=== PATIENT | male | born 1975 | race Caucasian/White ===

== ENCOUNTER 2024-12-11 22:21 | Inpatient (IN) | payer BC, SELFPAY ==
[2024-12-11 18:14] VITALS: BP 123/95
[2024-12-11 18:38] LABS: Urine Character Cloudy (Clear)
[2024-12-11 18:47] LABS: Urine Squamous Cell 0-2 /LPF (Few)
[2024-12-11 18:49] LABS: Urine Red Blood Cell 70-80 /HPF (0-2); Urine White Cell 21-25 /HPF (0-5)
[2024-12-11 18:59] LABS: Hematocrit 47.5 % (39.0-52.0); Hemoglobin 15.5 g/dL (13.0-18.0); Mean Corp Hgb Conc. 32.6 g/dL (33.0-37.0); Mean Corpuscular Volume 87.2 fL (80.0-94.0); Nucleated Red Blood Cells % 0 % (-); Platelet Count 209 10^3/uL (130-400); Red Cell Dist. Width 13.8 % (11.5-14.5)
[2024-12-11 19:02] VITALS: BP 121/63
[2024-12-11 19:12] VITALS: BMI 45.8
--- NOTE | 2024-12-11 19:17 | ED.GENMED ---
History of Present Illness
<Henry Dos Santos PA-C - Last Filed: 12/11/24 20:46>
General
Chief Complaint: Fever
Source: patient
Exam Limitations: none
Time Seen by Provider: 12/11/24 19:00
History of Present Illness
History of Present Illness:
49-year-old male bariatric patient status post duodenal switch presents complaining of ongoing fever fatigue urinary symptoms. He notes foul-smelling urine. He has a history of kidney stones and believes he passed a stone on his own last week. He
heard it hit the toilet. He notes persistent urinary symptoms however. He has been having ongoing fever. He also notes a cough. He notes right sided flank pain. No other complaints at this time
Phy Exam
<Henry Dos Santos PA-C - Last Filed: 12/11/24 20:46>
Physical Exam
Physical Exam:
General: Obese slightly ill-appearing male no acute respiratory distress
HEENT: Normal cephalic atraumatic heart: Regular rate and rhythm
Lungs: Breath sounds distant secondary to body habitus but no obvious Rales
Abdomen: No significant tenderness to palpation
Sepsis
<Henry Dos Santos PA-C - Last Filed: 12/11/24 20:46>
Sepsis Screening
Sepsis Assessment: Sepsis
Sepsis Screen
Sepsis Screen: Sepsis
Date: 12/11/24
Time: 20:46
<Oswald Morillo MD - Last Filed: 12/11/24 20:57>
Sepsis Screen
Sepsis Screen: Sepsis
Date: 12/11/24
Time: 20:56
Course
<Henry Dos Santos PA-C - Last Filed: 12/11/24 20:46>
Orders/Labs/Results
Orders:
Orders
10/22/25 18:32
Urinalysis Reflex To Culture Urgent
Date Specimen was Collected: 12/11/24
Time Specimen was Collected: 18:29
Urine Microscopic Reflex Cult Urgent
Urine Culture Urgent
KOURTNEY Source: U
Specimen Description:
Date Specimen was Collected: 12/11/24
Time Specimen was Collected: 18:29
12/11/24 18:48
Complete Blood Count/With Diff Urgent
Comprehensive Metabolic Panel Urgent
Lactic Acid Urgent
Blood Culture Urgent
KOURTNEY Source: Blood/Venous
Specimen Description:
12/11/24 19:14
CT Abd/pel Without Iv Or Oral Urgent
Comment:
Reason For Exam: flank pain, hematuria
0.9% Sodium Chloride 1000 ml [Nss] 1,000 ml IV BOLUS
CR Chest - 2 Views Urgent
Comment:
Reason For Exam: cough, fever
12/11/24 19:28
Blood Culture Urgent
KOURTNEY Source: Blood/Venous
Specimen Description:
12/11/24 19:29
Acetaminophen [Tylenol] 1,000 mg PO NOW STA
CefTRIAXone [Rocephin] 1,000 mg IV NOW STA
12/11/24 19:36
0.9% Sodium Chloride 1000 ml [Nss] 1,000 ml IV BOLUS
Abnormal Lab Results
12/11/24 12/11/24
18:32 18:48
WBC 14.6 H 10^3/uL
(4.8-10.8)
MCHC 32.6 L g/dL
(33.0-37.0)
MPV 12.6 H fL
(7.4-10.4)
Abs Immat Gran (auto) 0.1 H 10^3/uL
(0-0.05)
Absolute Neuts (auto) 12.5 H 10^3/uL
(1.4-6.5)
Absolute Lymphs (auto) 0.8 L 10^3/uL
(1.2-3.4)
Absolute Monos (auto) 1.2 H 10^3/uL
(0.1-0.6)
Neutrophils % 85.7 H %
(42.2-75.2)
Lymphocytes % 5.4 L %
(20.5-51.1)
Sodium 128 L mmol/L
(135-145)
Glucose 298 H mg/dl
(70-99)
Lactic Acid 2.1 H mmol/L
(0.7-2.0)
Calcium 8.1 L mg/dl
(8.4-10.2)
Total Bilirubin 1.4 H mg/dl
(0.2-1.3)
ALT 168 H U/L
(0-50)
Alkaline Phosphatase 163 H U/L
(38-126)
Urine Ketones 3+ A
(Negative)
Ur Occult Blood Reflex 4+ A
(Negative)
Urine Nitrite (Reflex) Positive A
(Negative)
Leukocyte Esterase Rfl 2+ A
(Negative)
Urine RBC 70-80 A /HPF
(0-2)
Urine WBC (Reflex) 21-25 A /HPF
(0-5)
Urine Bacteria (Reflex) Many A
(Negative)
Urine Glucose 3+ A
(Negative)
Urine Albumin (Reflex) 3+ A
(Neg - Trace)
12/11/24 18:48
12/11/24 18:48
Vital Signs
Initial and Last Documented VS:
Initial Vital Signs
Temp Pulse Resp BP Pulse Ox
100.4 F H 132 20 123/95 95
12/11/24 18:14 12/11/24 18:14 12/11/24 18:14 12/11/24 18:14 12/11/24 18:14
Last Documented Vital Signs
Temp Pulse Resp BP Pulse Ox
102 F H 114 15 144/124 97
12/11/24 20:54 12/11/24 20:15 12/11/24 20:15 12/11/24 20:00 12/11/24 19:30
<Oswald Morillo MD - Last Filed: 12/11/24 20:57>
Orders/Labs/Results
Orders:
Orders
12/11/24 18:32
Urinalysis Reflex To Culture Urgent
Date Specimen was Collected: 12/11/24
Time Specimen was Collected: 18:29
Urine Microscopic Reflex Cult Urgent
Urine Culture Urgent
KOURTNEY Source: U
Specimen Description:
Date Specimen was Collected: 12/11/24
Time Specimen was Collected: 18:29
12/11/24 18:48
Complete Blood Count/With Diff Urgent
Comprehensive Metabolic Panel Urgent
Lactic Acid Urgent
Blood Culture Urgent
KOURTNEY Source: Blood/Venous
Specimen Description:
12/11/24 19:14
CT Abd/pel Without Iv Or Oral Urgent
Comment:
Reason For Exam: flank pain, hematuria
0.9% Sodium Chloride 1000 ml [Nss] 1,000 ml IV BOLUS
CR Chest - 2 Views Urgent
Comment:
Reason For Exam: cough, fever
12/11/24 19:28
Blood Culture Urgent
KOURTNEY Source: Blood/Venous
Specimen Description:
12/11/24 19:29
Acetaminophen [Tylenol] 1,000 mg PO NOW STA
CefTRIAXone [Rocephin] 1,000 mg IV NOW STA
12/11/24 19:36
0.9% Sodium Chloride 1000 ml [Nss] 1,000 ml IV BOLUS
Abnormal Lab Results
12/11/24 12/11/24
18:32 18:48
WBC 14.6 H 10^3/uL
(4.8-10.8)
MCHC 32.6 L g/dL
(33.0-37.0)
MPV 12.6 H fL
(7.4-10.4)
Abs Immat Gran (auto) 0.1 H 10^3/uL
(0-0.05)
Absolute Neuts (auto) 12.5 H 10^3/uL
(1.4-6.5)
Absolute Lymphs (auto) 0.8 L 10^3/uL
(1.2-3.4)
Absolute Monos (auto) 1.2 H 10^3/uL
(0.1-0.6)
Neutrophils % 85.7 H %
(42.2-75.2)
Lymphocytes % 5.4 L %
(20.5-51.1)
Sodium 128 L mmol/L
(135-145)
Glucose 298 H mg/dl
(70-99)
Lactic Acid 2.1 H mmol/L
(0.7-2.0)
Calcium 8.1 L mg/dl
(8.4-10.2)
Total Bilirubin 1.4 H mg/dl
(0.2-1.3)
ALT 168 H U/L
(0-50)
Alkaline Phosphatase 163 H U/L
(38-126)
Urine Ketones 3+ A
(Negative)
Ur Occult Blood Reflex 4+ A
(Negative)
Urine Nitrite (Reflex) Positive A
(Negative)
Leukocyte Esterase Rfl 2+ A
(Negative)
Urine RBC 70-80 A /HPF
(0-2)
Urine WBC (Reflex) 21-25 A /HPF
(0-5)
Urine Bacteria (Reflex) Many A
(Negative)
Urine Glucose 3+ A
(Negative)
Urine Albumin (Reflex) 3+ A
(Neg - Trace)
12/11/24 18:48
12/11/24 18:48
Vital Signs
Initial and Last Documented VS:
Initial Vital Signs
Temp Pulse Resp BP Pulse Ox
100.4 F H 132 20 123/95 95
12/11/24 18:14 12/11/24 18:14 12/11/24 18:14 12/11/24 18:14 12/11/24 18:14
Last Documented Vital Signs
Temp Pulse Resp BP Pulse Ox
102 F H 114 15 144/124 97
12/11/24 20:54 12/11/24 20:15 12/11/24 20:15 12/11/24 20:00 12/11/24 19:30
<Henry Dos Santos PA-C - Last Filed: 12/11/24 20:46>
MDM/Problems Addressed
Differential Diagnosis Includes:
Fever urinary symptoms cough fatigue. Question underlying UTI versus kidney stone or both. He was recently tested for COVID and flu at his doctor's office today which was negative. Will add chest x-ray and CT of the abdomen. Fluids ordered.
<Henry Dos Santos PA-C - Last Filed: 12/11/24 20:46>
*Pulse Oximetry
SaO2: 93
Oxygen Mode of Delivery: Room air
Patient hypoxic: no
*Critical Care Note
Total Time (30-74mins, 75-104mins- exclusive of procedures): Not Applicable
<Henry Dos Santos PA-C - Last Filed: 12/11/24 20:46>
Update Note
Update Note:
CT demonstrates findings consistent with pyelonephritis but no obvious obstructing stone. Labs reviewed lactic is 2.1 white count is elevated patient is septic secondary to urinary tract infection or pyelonephritis. Rocephin ordered Tylenol ordered
ED Attending Note
<Henry Dos Santos PA-C - Last Filed: 12/11/24 20:46>
-
Portions of this chart may have been created with voice recognition software.� Occasional wrong word or��sound alike� substitutions may have occurred due to the inherent limitations of voice recognition software.
<Oswald Morillo MD - Last Filed: 12/11/24 20:57>
ED Attending Note
Patient seen and examined by attending physician: Yes
ED Attending Note:
Patient presents to ED secondary to 5-day history of fever, chills, and body ache, along with nausea sensation. 3 days prior to onset of his symptoms, patient felt as though he may have passed kidney stone. Denies vomiting or diarrhea. Denies
coughing. Denies headache. Denies dizziness. Denies chest pain or shortness of breath.
Physical Exam
General: mild distress, not acutely ill. febrile
Head: nc/at. eomi
Neck: supple. no meningeal signs.
Heart: tachycardic. no murmur
Lungs: no acute respiratory distress. clear bilaterally
Abdomen: normal bowel sounds. not tender.
Neuro: alert and oriented x 3. no focal neurological deficits
Skin: no rash
Psychiatric: well kept. interactive and cooperative
Extremities: no edema. no calf tenderness.
History and exam consistent with sepsis, likely secondary to pyelonephritis. Patient treated aggressively with IV fluid boluses along with IV antibiotics. Blood culture pending. Urine culture pending.
CT abdomen pelvis report reviewed, consistent with likely pyelonephritis without any evidence of obstructing ureteral stone.
Discharge Plan
Departure
Patient Disposition: Admit
Date of Disposition: 12/11/24
Time of Disposition: 20:46
Presentation/result/management discussed w/ accepting MD/DO: Hospitalist
Discharge Problem:
Sepsis
Prescriptions:
No Action
No Current Medications
0
Interventions
Interventions:
*Risk Screen - Suicide Last Done: 12/11/24 19:31
*General Assessment Last Done: 12/11/24 19:31
*Neglect/Abuse Screening Last Done: 12/11/24 19:31
*ED- Fall Risk Assessment Last Done: 12/11/24 19:31
*ED COVID-19 Vaccine History Last Done: 12/11/24 18:14
*ED Influenza Vaccine History Last Done: 12/11/24 18:14
ED- Neurological Assessment Last Done: 12/11/24 19:46
ED-Skin Assessment Last Done: 12/11/24 19:46
Discharge Date and Time
Print Language: GRENADIAN
[2024-12-11 19:22] LABS: ALT (SGPT) 168 U/L (0-50); AST (SGOT) 35 U/L (17-59); Albumin 3.6 g/dl (3.5-5.0); Alkaline Phosphatase 163 U/L (38-126); Blood Urea Nitrogen 11 mg/dl (9-20); Calcium 8.1 mg/dl (8.4-10.2); Carbon Dioxide 24 mmol/L (22-30); Chloride 101 mmol/L (98-107); Estimated Creatinine Clearance > 125 ml/min; Glucose 298 mg/dl (70-99); Potassium 4.0 mmol/L (3.5-5.1); Sodium 128 mmol/L (135-145); Total Protein 6.7 g/dl (6.3-8.2); eGFR > 60.00
[2024-12-11] MEDS: NSS 1000 IV ×3 (19:24→23:04)
[2024-12-11] MEDS: TYLENOL 1000 MG PO (19:35)
[2024-12-11] MEDS: ROCEPHIN 1000 MG IV (19:36)
[2024-12-11 20:00] VITALS: BP 144/124
[2024-12-11 20:53] VITALS: BP 122/76
[2024-12-11 21:00] VITALS: BP 136/125
[2024-12-11] MEDS: NSS 500 IV (21:17)
--- NOTE | 2024-12-11 21:44 | HPS.HSE ---
Family Physician
-
Family Physician: Arianna Holcomb
Chief Complaint
-
Fevers / Chills
History of Present Illness
Patient is a 49y M with PMH significant for obesity s/p bariatric surgery who presents to ED complaining of fevers / chills, abdominal pain and malaise. Patient states that he developed initial symptoms about one week ago of fevers / chills,
cough and abdominal pain. He notes that he passed a kidney stone 2 days after symptom onset. He has continued to have intermittent fevers / chills. He notes pain in the abdomen and in both flanks - R > L. He denies any N/V/D. He has noted
progressively malodorous urine and - more recently - decreased urine output in general.
Patient states that he took a Medrol pack ( had left over from prior Rx) when symptoms initially started.
Medical History
Past Medical History
Past Medical History: Reports Other
Additional Past Medical History:
Nephrolithiasis
Morbid Obesity
Past Surgical History: Reports Other
Additional Past Surgical History:
Duodenal Switch
Ankle Surgery
Appendectomy
Cholecystectomy
Social History
Tobacco: Non-smoker
Alcohol: Occasional
Drug: None
Family History
Family History: Not pertinent
Allergies / Home Medications
Allergies reflects when Allergies were last updated in [facility].
Home Medications with original date entered in [facility]
Allergy/Medication List:
Allergies
Allergy/AdvReac Type Severity Reaction Status Date / Time
No Known Allergies Allergy Verified 12/11/24 18:24
Home Medications
No Meds [No Current Medications] 12/11/24
Review of Systems
-
History Source: Patient
A 12 point ROS was completed and negative except as noted: Yes
Constitutional: Reports Fever, Fatigue and Chills
EENT: Denies Sore Throat
Respiratory: Denies Cough or Trouble Breathing
Cardiac: Denies Chest Pain or Palpitations
Abdomen/GI: Reports Abdominal Pain and Nausea; Denies Vomiting, Diarrhea, Constipated or Anorexia
: Reports Flank Pain and Other (Malodor. Decreased urination); Denies Dysuria or Frequency
Musculoskeletal: Denies Joint Pain or Edema
Neurological: Reports Headache; Denies Dizzy
Psych: Denies Depression or Anxiety
Physical Exam
Vital Signs
Vital Signs
Temp Pulse Resp BP Pulse Ox
102 F H 111 19 136/125 94
12/11/24 20:54 12/11/24 21:30 12/11/24 21:30 12/11/24 21:00 12/11/24 21:30
Physical Exam
General: Other (Ill-appearing 49y M.)
HEENT: Moist mucous membranes, PERRLA and Other (Thick neck.)
Respiratory: Clear; No Wheezes, Rales or Rhonchi
Cardiac: S1/S2 and Regular Rhythm; No Murmur
GI: Other (Obese, mildly / diffusely tender. Pos BS.)
Genito-urinary: Other (Bilateral CVAT - R > L.)
Musculoskeletal: No Clubbing, No Cyanosis and No Edema
Neuro: AO x 3
Laboratory Results
-
12/11/24 18:48
12/11/24 18:48
Laboratory Results
Lactic Acid 2.1 mmol/L (0.7-2.0) H 12/11/24 18:48
Total Bilirubin 1.4 mg/dl (0.2-1.3) H 12/11/24 18:48
AST 35 U/L (17-59) 12/11/24 18:48
ALT 168 U/L (0-50) H 12/11/24 18:48
Alkaline Phosphatase 163 U/L (38-126) H 12/11/24 18:48
Impression/Plan
-
A/P: Patient is a 49y M with PMH significant for nephrolithiasis and obesity s/p duodenal switch who presents to ED complaining of fevers / chills, abdominal pain.
Bilateral Pyelonephritis
Sepsis secondary to the above
- Admit for further evaluation and treatment.
- IV abx with ceftriaxone pending culture data.
- Continue IVF support. Received sepsis bolus in the ED.
- CT scan showed b/l hydro / pyelo - but no evidence of stone / obstruction at present.
- Follow for clinical improvement.
Hyponatremia
- Likely secondary to sepsis +/- volume losses.
- IVF support as noted above..
- Follow for improvement in labs / lytes.
Hyperglycemia
- No formal dx of DM, but random glucose > 200.
- Follow glucose and cover with SSI as needed.
- Check A1C.
Morbid Obesity s/p Bariatric Surgery
- Patient admittedly non-compliant with bariatric vitamins / supplements.
- BMI remains > 40. Affects all aspects of care.
- Encourage healthy diet and increased exercise with goal of weight loss.
DVT Prophylaxis: Lovenox
Code Status: Full
[2024-12-11 22:00] VITALS: BP 143/98
[2024-12-11] MEDS: TYLENOL 650 MG PO (22:14)
[2024-12-11 23:09] LABS: Glucose - Point of Care 242 mg/dl (70-99)
[2024-12-12] VITALS (11 sets, daily range): BP systolic 116–145; BP diastolic 62–103; BMI 45.9
[2024-12-12 05:47] LABS: Hematocrit 41.2 % (39.0-52.0); Hemoglobin 13.4 g/dL (13.0-18.0); Mean Corp Hgb Conc. 32.5 g/dL (33.0-37.0); Mean Corpuscular Volume 87.1 fL (80.0-94.0); Platelet Count 162 10^3/uL (130-400); Red Cell Dist. Width 13.8 % (11.5-14.5)
[2024-12-12] MEDS: TYLENOL 650 MG PO ×2 (05:58→23:11)
[2024-12-12 06:07] LABS: Blood Urea Nitrogen 9 mg/dl (9-20); Calcium 7.4 mg/dl (8.4-10.2); Carbon Dioxide 23 mmol/L (22-30); Chloride 106 mmol/L (98-107); Estimated Creatinine Clearance > 125 ml/min; Glucose 220 mg/dl (70-99); Potassium 3.9 mmol/L (3.5-5.1); Sodium 134 mmol/L (135-145); eGFR > 60.00
[2024-12-12] MEDS: NSS 1000 IV ×3 (06:32→20:08)
[2024-12-12 07:32] LABS: Glucose - Point of Care 187 mg/dl (70-99)
--- NOTE | 2024-12-12 07:55 | W.PN.HOSP.TC ---
Today's Communication/Plan
-
Continue antibiotics
Follow repeat cultures
Assessment / Plan
Assessment / Plan
Physical Exam
General: Other (Ill-appearing 49y M.)
HEENT: Moist mucous membranes, PERRLA and Other (Thick neck.)
Respiratory: Clear; No Wheezes, Rales or Rhonchi
Cardiac: S1/S2 and Regular Rhythm; No Murmur
GI: Other (Obese, mildly / diffusely tender. Pos BS.)
Genito-urinary: Other (Bilateral CVAT - R > L.)
Musculoskeletal: No Clubbing, No Cyanosis and No Edema
Neuro: AO x 3
Assessment/Plan
49 y/o male with past medical history significant for nephrolithiasis and obesity status post bariatric surgery who presented to [facility] emergency room complaining of fevers/chills, abdominal pain and malaise. Patient stated that he developed initial
symptoms about one week prior to presentation with fever/chills, cough and abdominal pain. He noted that he passed a kidney stone 2 days after symptom onset. He has continued to have intermittent fevers/chills. He noted pain in the abdomen and in
both flanks - R > L. He denied any N/V/D. He has noted progressively malodorous urine and - more recently - decreased urine output in general.
Patient states that he took a Medrol pack ( had left over from prior Rx) when symptoms initially started.
Bilateral Pyelonephritis
E. coli Bacteremia
Sepsis secondary to the above
- IV abx with ceftriaxone pending culture data.
- Continue IVF support. Received sepsis bolus in the ED.
- CT scan showed moderate distention of the left intrarenal collecting system and mild distention of the right intrarenal collecting system without evidence for ureteral distention or obstructing ureteral calculus
- Follow for clinical improvement.
- Appreciate ID
Hyponatremia
- Likely secondary to sepsis +/- volume losses.
- IVF support as noted above..
- Follow for improvement in labs / lytes.
Hyperglycemia
- No formal diagnosis of DM, but random glucose > 200.
- Follow glucose and cover with SSI as needed.
- A1C 8.8%
Morbid Obesity s/p Bariatric Surgery
- Patient admittedly non-compliant with bariatric vitamins / supplements.
- BMI remains > 40. Affects all aspects of care.
- Encourage healthy diet and increased exercise with goal of weight loss.
Severe diffuse hepatic steatosis
Previous cholecystectomy and appendectomy
Previous sleeve gastrectomy and duodenal switch procedure with a duodenojejunal anastomosis in the upper abdomen
Mild splenomegaly
Mild colonic diverticulosis
Mildly enlarged prostate gland
Severe discogenic degenerative disease and grade 1 anterolisthesis at L5/S1
DVT Prophylaxis: Lovenox
Code Status: Full Code
Anticipated Discharge: 24 - 48 hours
Subjective/Interval History
-
Date of Service: December 12, 2024
Patient was seen and examined. He reported feeling okay, he stated that he feels better than when he came in.
Objective Data
-
Labs:
Laboratory Results
12/12/24
05:25
WBC 15.4 H
Hgb 13.4
Hct 41.2
Plt Count 162 D
Sodium 134 L
Potassium 3.9
Chloride 106
Carbon Dioxide 23
BUN 9
Creatinine 0.7
Glucose 220 H
Calcium 7.4 L
Vital Signs:
Vital Signs
Temp Pulse Resp BP Pulse Ox
97.8 F 84 17 116/62 97
12/12/24 07:00 12/12/24 07:00 12/12/24 07:00 12/12/24 07:00 12/12/24 07:00
I&O
12/11/24 12/12/24 12/13/24
06:59 06:59 06:59
Intake Total 1999
Balance 1999
[2024-12-12 08:48] LABS: Glycohemoglobin (HgbA1c) 8.8 % (4.0-5.9)
--- NOTE | 2024-12-12 09:47 | CM ---
CM reviewed chart and spoke with pt at bedside in ED
Lives in an apartment with elevator access and
Working and driving. Ambulating with [employer]
no other DME
PCP Dr. Arianna Holcomb
RX plan yes
Pharmacy [facility] in [facility]
no hx of VN nor SNF
DCP is to go home when medically stable
CM will continue to follow up for dcp needs
[2024-12-12] MEDS: NOVOLOG FLEXPEN-LOW RESISTANCE 1 UNITS SC (10:44)
[2024-12-12] MEDS: STERILE WATER FOR INJECTION 20 ML IV (11:10)
[2024-12-12] MEDS: ROCEPHIN 2000 MG IV (11:11)
[2024-12-12 12:39] LABS: Glucose - Point of Care 216 mg/dl (70-99)
--- NOTE | 2024-12-12 13:45 | PTCARENOTE ---
Patient arrived to unit. VSS. AAOx4, Patient tolerated ambulating from stretcher to bed. IV fluids remain in place. Patient in NAD.call romeo in reach. safety maintained. will continue to monitor.
[2024-12-12] MEDS: NOVOLOG FLEXPEN-LOW RESISTANCE 2 UNITS SC (14:24)
--- NOTE | 2024-12-12 15:29 | CON.ID ---
Consultation
-
Date/Time Consultation Requested: 12/12/2024 0902
Date/Time Consultation Performed: 12/12/2024 1530
Requesting Provider: Dr. Aguilar
Performing Provider: Dr. Boss
Reason for Consultation: Bacteremia
Chief Complaint / Past History
History of Present Illness
Neo Ba is a 49-year-old man with a significant past medical history of nephrolithiasis and morbid obesity being evaluated the request of Dr. Aguilar in regards to bacteremia. History is obtained from chart review, along with patient
interview.
The patient reports that he will not infrequently pass kidney stones. He reports that he was doing well till about a week to a week and a half ago when he developed fevers and chills and he again passed a stone. Fevers improved, only to return
several days later. With return of his symptoms he presented to his PCP who sent him on to the ER for further evaluation. Here, he was found to have a leukocytosis, and CT imaging suggested bilateral pyelonephritis. Blood cultures obtained at
admission are now positive for E. coli, and Infectious Diseases asked to comment upon further antimicrobial management.
At present he denies any flank pain. He does admit to some headache, but no neck stiffness he denies any chest pain. He denies any abdominal discomfort or dysuria at present. He reports prior hematuria has improved/resolved.
Past History
Additional Past Medical History:
Obesity
Nephrolithiasis
Additional Past Surgical History:
Duodenal switch
Ankle surgery
Appendectomy
Cholecystectomy
Allergy History:
No Known Allergies Allergy (Verified 12/11/24 18:24)
Medications Reviewed: Yes
Current Antibiotics:
Ceftriaxone 2 gm IV q. 24 hours
Social History
Tobacco: Non-Smoker
Alcohol: Occasional
Drug: None
Personal:
Living: With Family
Employment: Employed
Family History
Family History: Not Pertinent
Review of Systems
Vital Signs
Temp Pulse Resp BP Pulse Ox
100.4 F H 100 18 145/83 96
12/12/24 13:48 12/12/24 13:48 12/12/24 13:48 12/12/24 13:48 12/12/24 13:48
Physical Exam
Physical Exam
Constitutional: No Acute Distress, Comfortable, Non-toxic and Obese
Head: Normocephalic
Eyes: Pupils Equal, Pupils Round, No Conjunctival Hemorrhage and Sclera Anicteric
Oral: No Thrush and No Ulcers
Cardiovascular: Regular Rate and S1/S2; Negative S3/S4
Pulmonary: Clear; Negative Wheezes, Rales or Rhonchi
Gastrointestinal: Soft, Non Tender, Non Distended and Normal Bowel Sounds
Genito-Urinary: Negative Bliss, Suprapubic Tenderness or CVA Tenderness
Extremities: Negative Edema, Cyanosis or Erythema
Neurological: Awake and Alert
Psychological: Calm
Lab / Diagnostic Study Results
12/12/24 05:25
12/12/24 05:25
Abs Immat Gran (auto) 0.1 10^3/uL (0-0.05) H 12/11/24 18:48
Absolute Neuts (auto) 12.5 10^3/uL (1.4-6.5) H 12/11/24 18:48
Absolute Lymphs (auto) 0.8 10^3/uL (1.2-3.4) L 12/11/24 18:48
Absolute Monos (auto) 1.2 10^3/uL (0.1-0.6) H 12/11/24 18:48
Absolute Basos (auto) 0.1 10^3/uL (0-0.2) 12/11/24 18:48
Immature Gran % 0.5 % (0-0.5) 12/11/24 18:48
Neutrophils % 85.7 % (42.2-75.2) H 12/11/24 18:48
Lymphocytes % 5.4 % (20.5-51.1) L 12/11/24 18:48
Monocytes % 8.0 % (1.7-9.3) 12/11/24 18:48
Eosinophils % 0.1 % (0-6) 12/11/24 18:48
Basophils % 0.3 % (0-2) 12/11/24 18:48
Lactic Acid 2.1 mmol/L (0.7-2.0) H 12/11/24 18:48
Ur Squamous Epith Cells 0-2 /LPF (Few) 12/11/24 18:32
Microbiology Results
Micro:
12/11/24 18:32 Urine Culture - Preliminary
Urine Escherichia coli
12/12/24 11:03 Blood Culture - Pending
Blood/Venous
12/12/24 10:43 Blood Culture - Pending
Blood/Venous
12/11/24 18:48 Blood Culture - Preliminary
Blood/Venous Escherichia coli
Gram Stain - Preliminary
12/11/24 19:28 Blood Culture - Preliminary
Blood/Venous Culture in progress
Gram Stain - Preliminary
12/12/24 01:31 MRSA Screen - Pending
Nose
Imaging:
12/11/2024 CT abdomen/pelvis without contrast: there is moderate distention of the left intrarenal collecting system, and mild distention of the right intrarenal collecting system without evidence for ureteral distention or obstructing ureteral
calculus. Mild bilateral perinephric fat stranding noted. No perinephric fluid collections noted. Severe diffuse hepatic steatosis noted. Previous sleeve gastrectomy and duodenal switch procedure. Mild splenomegaly.
Assessment / Plan
Bilateral pyelonephritis
E. coli bacteremia
Complicated urinary tract infection
Fevers
Leukocytosis
Hx nephrolithiasis with recently passed stone
DM (HbA1c = 8.8)
Morbid obesity (BMI = 45.9)
Recommendations:
Blood cultures with E. coli identified by PCR methodology. No resistance genes noted.
Continue with ceftriaxone. Monitor temperature curve. Fevers may persist, but would expect temp curve to slowly improve.
Await final culture data to guide further antimicrobial selection and potential de-escalation.
Continue with supportive measures.
Monitor white count.
[2024-12-12] MEDS: MUCINEX 600 MG PO ×2 (16:20→20:02)
[2024-12-12 16:29] LABS: Glucose - Point of Care 148 mg/dl (70-99)
[2024-12-12] MEDS: NOVOLOG FLEXPEN-LOW RESISTANCE SC (16:30)
--- NOTE | 2024-12-12 17:12 | W.PN.UPDATE ---
Update Note
Progress Note Update
Patient's bariatric surgeon said that patient should not get any blood thinners. Therefore, stop Lovenox, but do SCDs only for now.
--- NOTE | 2024-12-12 17:19 | PTCARENOTE ---
Patient states his bariatric doctor told him he can not take any blood thinners. MD Aguilar notified. Orders changed. SCDs placed on patient. will continue to monitor.
[2024-12-12 21:28] LABS: Glucose - Point of Care 151 mg/dl (70-99)
[2024-12-13] MEDS: NSS 1000 IV (03:19)
[2024-12-13 03:45] VITALS: BP 144/87
[2024-12-13 07:15] VITALS: BP 149/98
--- NOTE | 2024-12-13 07:20 | PN.DE.MGMTRT ---
Insulin Management
- -
12/13/24: Diabetes Management consult
49 y/o male with [facility] nephrolithiasis, T2DM, Morbid Obesity, s/p bariatric surgery.
Patient presented to [facility] ER c/o fevers/chills, abdominal pain and malaise. He noted that he passed a kidney stone 2 days after symptom onset. He has continued to have intermittent fevers/chills. He noted pain in the abdomen and flanks - R > L. He
has noted progressively malodorous urine and - more recently - decreased urine output in general. He is currently being treated for Urosepsis.
Pt awake, alert, oriented, sitting up in chair, offers no c/o, able to discuss diabetes hx and care plan.
Patient reports hx of morbid obesity- wt of 625 lbs and uncontrolled Diabetes. States his was A1c ~18 % at one point and was managed on 70/30 BID then was started on [employer]-insulin pump for optimal glucose control before bariatric surgery.
Patient underwent gastric sleeve, duodenal switch, gallbladder and appendix removal [address] Sunshine in [place], with wt loss of ~ 300 lbs, says his current wt is 319 lbs.
Patient states he was taken off insulin pump completely prior to d/c from the hospital after his bariatric surgery and has not been on insulin or any oral diabetes since then. States he thought he was in remission and has not been monitoring his
blood glucose or adhering to any specific diet.
A1C 8.8 % , Cr 0.7, eGFR > 60. Glucose on admission was 298 V, 242 POC.
12/13 premeal glucose range was 148-216, patient received 1 -2 units of corrective insulin. HS Glucose was 151, fasting 176 V, 148 POC.
He was started on clear liquid diet and is tolerating it well. Will start long acting insulin - Lantus 15 units in AM , first dose now.
Continue low corrective insulin with meals while he remains on clear liquid diet.
Will reassess once diet has been advanced to solid and consider adding AC coverage.
Had lengthy discussion with pt regarding lifestyle modification including exercise and diet , specifically portion control. Patient states he cannot exercise due to physical limitation and sedentary lifestyle due to work. Provided examples of chair
exercises and gave basic guidelines of exercise limitations.
Will consult [employer] to provide dietary counseling.
Discussed with nurse. Will continue to follow.
Diabetes History
- -
Type of Diabetes: 2 requiring insulin
Pre-Admission Diabetes Regimen
Lab Results
Hemoglobin A1c 8.8 % (4.0-5.9) H 12/12/24 05:25
Insulin Pump Settings
IP Diabetes Regimen
12/12/24 12/12/24 12/12/24
07:29 12:38 16:28
POC Glucose 187 H 216 H 148 H
12/12/24
21:27
POC Glucose 151 H
Patient Education
[2024-12-13] MEDS: NOVOLOG FLEXPEN-LOW RESISTANCE SC ×2 (08:00→16:48)
[2024-12-13] MEDS: MUCINEX 600 MG PO (08:00)
[2024-12-13 08:03] LABS: Glucose - Point of Care 148 mg/dl (70-99)
[2024-12-13] MEDS: LANTUS 0.15 UNITS SC (09:24)
[2024-12-13 10:03] LABS: Hematocrit 39.8 % (39.0-52.0); Hemoglobin 13.1 g/dL (13.0-18.0); Mean Corp Hgb Conc. 32.9 g/dL (33.0-37.0); Mean Corpuscular Volume 85.2 fL (80.0-94.0); Platelet Count 164 10^3/uL (130-400); Red Cell Dist. Width 14.1 % (11.5-14.5)
[2024-12-13 10:20] LABS: ALT (SGPT) 82 U/L (0-50); AST (SGOT) 27 U/L (17-59); Albumin 3.0 g/dl (3.5-5.0); Alkaline Phosphatase 102 U/L (38-126); Blood Urea Nitrogen 6 mg/dl (9-20); Calcium 7.8 mg/dl (8.4-10.2); Carbon Dioxide 21 mmol/L (22-30); Chloride 108 mmol/L (98-107); Estimated Creatinine Clearance > 125 ml/min; Glucose 176 mg/dl (70-99); Potassium 4.1 mmol/L (3.5-5.1); Sodium 135 mmol/L (135-145); Total Protein 5.8 g/dl (6.3-8.2); eGFR > 60.00
[2024-12-13 10:55] LABS: Glucose - Point of Care 157 mg/dl (70-99)
[2024-12-13 11:02] VITALS: BP 140/89
[2024-12-13] MEDS: STERILE WATER FOR INJECTION 20 ML IV (12:20)
[2024-12-13] MEDS: ROCEPHIN 2000 MG IV (12:20)
--- NOTE | 2024-12-13 12:22 | W.PN.ID1 ---
Date of Service
Date of Service: December 13, 2024
Today's Communication
Transition to oral ciprofloxacin.
Assessment / Plan
Bilateral pyelonephritis
E. coli bacteremia
Complicated urinary tract infection
Fevers
Leukocytosis
Hx nephrolithiasis with recently passed stone
DM (HbA1c = 8.8)
Morbid obesity (BMI = 45.9)
Recommendations:
Temp curve overall improving.
E. coli isolate susceptible to ciprofloxacin.
Discontinue further ceftriaxone. Transition to ciprofloxacin 750 mg p.o. BID, to complete a 10-day course of antibiotics (through 12/20/2024)
No objection to discharge from Infectious Diseases standpoint.
Chief Complaint
-: Leukocytosis, UTI and Bacteremia
Subjective / Review of Systems
Patient seen and examined. Reports overall feeling improved. Denies CVA tenderness.
Review of Systems: No Fever and No Chills
Vital Signs / Physical Exam
Vital Signs
Vital Signs
Temp Pulse Resp BP Pulse Ox
98.7 F 93 16 140/89 95
12/13/24 11:02 12/13/24 11:02 12/13/24 11:02 12/13/24 11:02 12/13/24 11:02
Physical Exam
Constitutional: No Acute Distress, Comfortable, Non-toxic and Obese
Eyes: Sclera Anicteric
Cardiovascular: S1/S2; Negative S3/S4
Pulmonary: Clear and Non Labored
Gastrointestinal: Soft, Non Tender and Non Distended
Genito-Urinary: Negative CVA Tenderness
Neurological: Awake and Alert
Psychological: Calm
Objective Data
Lab Data
Lab Results
12/13/24 09:48
12/13/24 09:48
Estimated Creat Clear > 125 ml/min 12/13/24 09:48
Lactic Acid 2.1 mmol/L (0.7-2.0) H 12/11/24 18:48
Total Bilirubin 0.6 mg/dl (0.2-1.3) 12/13/24 09:48
AST 27 U/L (17-59) 12/13/24 09:48
ALT 82 U/L (0-50) H 12/13/24 09:48
Alkaline Phosphatase 102 U/L (38-126) 12/13/24 09:48
Most recent labs reviewed.
Micro Results:
12/12/24 11:03 Blood Culture - Preliminary
Blood/Venous No Growth in 24 hours- Final report to follow
12/12/24 10:43 Blood Culture - Preliminary
Blood/Venous No Growth in 24 hours- Final report to follow
12/11/24 19:28 Blood Culture - Preliminary
Blood/Venous Escherichia coli
Gram Stain - Preliminary
12/11/24 18:48 Blood Culture - Preliminary
Blood/Venous Escherichia coli
Gram Stain - Final
12/11/24 18:32 Urine Culture - Final
Urine Escherichia coli
12/12/24 01:31 MRSA Screen - Final
Nose No Methicillin Resistant Staphylococcus aureus isolated.
Urine Culture Final 12/11/24
CC: Greater than 100,000 CFU/ML Escherichia coli
Organism 1 Escherichia coli
1. Escherichia coli
M.I.C. RX
--------- ---
Amoxicillin/Potas. Clavulanate <=8/4 S
Ampicillin >16 R
Ampicillin/Sulbactam 16/8 I
Aztreonam <=4 S
Cefazolin <=2 S
Ertapenem <=0.5 S
Ciprofloxacin <=0.25 S
Gentamicin <=2 S
Meropenem <=1 S
Nitrofurantoin-Urine Only <=32 S
Piperacillin/Tazobactam <=8 S
Tetracycline >8 R
Tobramycin <=2 S
Trimethoprim/Sulfamethoxazole <=2/38 S
Imaging:
12/11/2024 CT abdomen/pelvis without contrast: there is moderate distention of the left intrarenal collecting system, and mild distention of the right intrarenal collecting system without evidence for ureteral distention or obstructing ureteral
calculus. Mild bilateral perinephric fat stranding noted. No perinephric fluid collections noted. Severe diffuse hepatic steatosis noted. Previous sleeve gastrectomy and duodenal switch procedure. Mild splenomegaly.
Care Review
Plan reviewed with: Physician (Hospitalist)
--- NOTE | 2024-12-13 12:50 | W.PN.HOSP.TC ---
Addendum entered and electronically signed by Bharat Aguilar MD 12/13/24 16:26:
I just spoke over the phone with Diabetes Nurse Practitioner Katarina Lucas, and per her recommendations, I sent Lantus 15 units daily and Glipizide 2.5 units twice daily to patient's pharmacy.
Original Note:
Today's Communication/Plan
-
Discharge today
Assessment / Plan
Assessment / Plan
Physical Exam
General: Not in acute distress
HEENT: Moist mucous membranes
Respiratory: Clear to Auscultation Bilaterally
Cardiac: S1/S2 and Regular Rhythm
GI: Nontender. Positive bowel sounds.
Musculoskeletal: No Cyanosis and No Edema
Neuro: AO x 3
Assessment/Plan
49 y/o male with past medical history significant for nephrolithiasis and obesity status post bariatric surgery who presented to [facility] emergency room complaining of fevers/chills, abdominal pain and malaise. Patient stated that he developed initial
symptoms about one week prior to presentation with fever/chills, cough and abdominal pain. He noted that he passed a kidney stone 2 days after symptom onset. He has continued to have intermittent fevers/chills. He noted pain in the abdomen and in
both flanks - R > L. He denied any N/V/D. He has noted progressively malodorous urine and - more recently - decreased urine output in general.
Patient states that he took a Medrol pack ( had left over from prior Rx) when symptoms initially started.
Bilateral Pyelonephritis
E. coli Bacteremia
Sepsis secondary to the above
- IV abx with ceftriaxone -- transition to ciprofloxacin 750 mg p.o. BID, to complete a 10-day course of antibiotics (through 12/20/2024)
- CT scan showed moderate distention of the left intrarenal collecting system and mild distention of the right intrarenal collecting system without evidence for ureteral distention or obstructing ureteral calculus
- Follow for clinical improvement.
- Appreciate ID
Hyponatremia
- RESOLVED
- Likely secondary to sepsis +/- volume losses.
- IVF support as noted above..
- Follow for improvement in labs / lytes.
Diabetes Mellitus
- Follow glucose and cover with SSI as needed.
- A1C 8.8%
- Per Diabetes [employer], Lantus 15 units daily
Morbid Obesity s/p Bariatric Surgery
- Patient admittedly non-compliant with bariatric vitamins / supplements.
- BMI remains > 40. Affects all aspects of care.
- Encourage healthy diet and increased exercise with goal of weight loss.
Severe diffuse hepatic steatosis
Previous cholecystectomy and appendectomy
Previous sleeve gastrectomy and duodenal switch procedure with a duodenojejunal anastomosis in the upper abdomen
Mild splenomegaly
Mild colonic diverticulosis
Mildly enlarged prostate gland
Severe discogenic degenerative disease and grade 1 anterolisthesis at L5/S1
DVT Prophylaxis: Lovenox
Code Status: Full Code
More than 30 minutes spent in discharge including
Final examination of the patient
Summarizing hospital stay
Instructions for continuing care to all relevant caregivers
Preparation of discharge records, prescriptions, and referral forms
Total time spent (in minutes): 39
Anticipated Discharge: Today
Subjective/Interval History
-
Date of Service: December 13, 2024
Patient was seen and examined. He reported feeling much better today.
Objective Data
-
Labs:
Laboratory Results
12/13/24 12/13/24
09:17 09:48
WBC 10.0
Hgb 13.1
Hct 39.8
Plt Count 164
Sodium Cancelled 135
Potassium Cancelled 4.1
Chloride Cancelled 108 H
Carbon Dioxide Cancelled 21 L
BUN Cancelled 6 L
Creatinine Cancelled 0.7
Glucose Cancelled 176 H
Calcium Cancelled 7.8 L
Total Bilirubin 0.6
AST 27
ALT 82 H
Alkaline Phosphatase 102
Vital Signs:
Vital Signs
Temp Pulse Resp BP Pulse Ox
98.7 F 93 16 140/89 95
12/13/24 11:02 12/13/24 11:02 12/13/24 11:02 12/13/24 11:02 12/13/24 11:02
I&O
12/12/24 12/13/24 12/14/24
06:59 06:59 06:59
Intake Total 1999 1621 / 1621
Output Total 1800 / 1800
Balance 1999 -179 / -179
[2024-12-13] MEDS: NOVOLOG FLEXPEN-LOW RESISTANCE 1 UNITS SC (13:04)
[2024-12-13 15:16] VITALS: BP 125/74
--- NOTE | 2024-12-13 16:25 | CM ---
CM reviewed chart, patient for d/c today.
Per PT, no skilled need.
D/c plan home no needs.
Plan; home no needs
--- NOTE | 2024-12-13 16:26 | W.DCSUMMARY ---
Discharge Summary
Discharge Data
Date of Admission: 12/11/24
Date of Discharge: 12/13/24
Total time spent discharging patient (in min): 39
-
Pending Results: Yes
Additional Pending Results:
Final results of repeat blood cultures from hospitalization
Hospital Course
49 y/o male with past medical history significant for obesity status post bariatric surgery who presented to [facility] ED complaining of fevers/chills, abdominal pain (and in both flanks) and malaise. Patient had CT imaging done and it showed bilateral
pyelonephritis. Patient was started on Ceftriaxone. Blood cultures grew E. coli, and repeat blood cultures were ordered. Given patient's bacteremia, infectious disease physician was consulted. Patient was noted to have a history of uncontrolled
diabetes mellitus, had bariatric surgery, and after his surgery he was not on any Insulin or any oral Diabetes Mellitus medications. This hospitalization, patient's HbA1c was found to be 8.8%, Diabetes Nurse Practitioner was consulted, and Diabetes
Nurse Practitioner confirmed with hospitalist over phone discussion that patient needs to be on Insulin long-acting, 15 units daily, as well as Glipizide 2.5 mg BID. The E. coli was found to be susceptible to Ciprofloxacin, and plan was for patient
to take Ciprofloxacin 750 mg p.o. BID, to complete a 10-day course of antibiotics (through 12/20/2024). Patient was doing much better and stable for discharge.
Discharge Plan
-
Patient Disposition: Home (Routine Discharge)
Discharge Diagnosis/Procedures: Bilateral Pyelonephritis
E. coli Bacteremia
Sepsis secondary to the above
Hyponatremia
Diabetes Mellitus
Morbid Obesity status post Bariatric Surgery
Severe diffuse hepatic steatosis
Previous cholecystectomy and appendectomy
Previous sleeve gastrectomy and duodenal switch procedure with a duodenojejunal anastomosis in the upper abdomen
Mild splenomegaly
Mild colonic diverticulosis
Mildly enlarged prostate gland
Severe discogenic degenerative disease and grade 1 anterolisthesis at L5/S1
CT Abdomen/Pelvis Results (as per radiologist's report):
'IMPRESSION:
1. Moderate distention of the left intrarenal collecting system and mild distention of the right intrarenal collecting system without evidence for ureteral distention or obstructing ureteral calculus. Acute pyelonephritis is a diagnostic
possibility given the history of fever and flank pain.
2. Severe diffuse hepatic steatosis.
3. Previous cholecystectomy and appendectomy.
4. Previous sleeve gastrectomy and duodenal switch procedure with a duodenojejunal anastomosis in the upper abdomen.
5. Mild splenomegaly.
6. Mild colonic diverticulosis.
7. Mildly enlarged prostate gland.
8. Severe discogenic degenerative disease and grade 1 anterolisthesis at L5/S1.'
Chest X-Ray Results (as per radiologist's report):
'IMPRESSION:
1. No radiographic evidence for pneumonia.
2. Mild scarring and subsegmental atelectasis in the lingula and left lower lobe.
3. Mildly decreased bilateral lung volumes.'
Condition: Good
Diet: Low Fat, Low Cholesterol, Low Sodium, 2 Gram Sodium and Diabetic, Carb Controlled
Activity: As tolerated
Activity Restrictions/Additional Instructions:
Please review your CT Abdomen/Pelvis report findings from 12/11/24 (that was done in the hospital) and also your chest x-ray results (from November 2024 hospitalization) with your primary care provider.
Please check your blood sugars at home before every meal and at night before you go to sleep, if the glucose is too high or low, please call your doctor and/or return to the emergency room right away.
Instructions: Low blood sugar in people with diabetes, Glipizide, Insulin Glargine, Checking your blood sugar at home, Keeping track of your blood sugar
Referrals:
Arianna Holcomb MD [Family Provider, Family Practice] - in less than 1 week
Referral Note: Hospitalization Follow-Up
Prescriptions:
New
ciprofloxacin HCl 500 mg Tablet
750 mg PO BID 8 Days Qty: 24 0RF
Rx Instructions:
Continue this antibiotic through 12/20/24
glipizide 5 mg tablet
2.5 mg PO BID Qty: 30 0RF
(DME) blood-glucose meter [Contour Next One Meter] Misc
Qty: 1 0RF
Rx Instructions:
As Directed
(DME) lancets [Color Lancets] 21 gauge Misc
Qty: 200 0RF
Rx Instructions:
As Directed
insulin glargine [Lantus Solostar U-100 Insulin] 100 unit/mL (3 mL) insulin pen
15 unit SC DAILY Qty: 15 0RF
(DME) Contour Next Test Strips Strip
See Rx Instructions .Route Qty: 10 1RF
Rx Instructions:
[facility]
(DME) pen needle, diabetic [Roxane Pen Needle] 32 gauge x 5/32' needle
See Rx Instructions .Route Qty: 50 1RF
Rx Instructions:
[facility]
Discharge Orders:
Discharge Patient (As Directed); Ordered 12/13/24
Ordered By: Bharat Aguilar
Discharge Date and Time
Discharge Date/Time: 12/13/24 18:44
Print Language: [id number]
[2024-12-13 16:42] LABS: Glucose - Point of Care 121 mg/dl (70-99)
== END 2024-12-13 18:44 | disposition home or self-care (01) | DRG 872 ==
LOC: 4 WEST ACU 22:21
PROVIDERS: Student in an Organized Health Care Education/Training Program; ADMITTING PHYSICIAN Hospitalist; ATTENDING PHYSICIAN Hospitalist; CONSULT PHYSICIAN Internal Medicine Infectious Disease; EMERGENCY PHYSICIAN Emergency Medicine; FAMILY PHYSICIAN Family Medicine
DX: A41.51 Sepsis due to Escherichia coli [E. coli] (principal); N12 Tubulo-interstitial nephritis, not specified as acute or chronic; Z68.42 Body mass index [BMI] 45.0-49.9, adult; E87.1 Hypo-osmolality and hyponatremia; N39.0 Urinary tract infection, site not specified; E66.01 Morbid (severe) obesity due to excess calories; E11.65 Type 2 diabetes mellitus with hyperglycemia; K76.0 Fatty (change of) liver, not elsewhere classified; Z87.442 Personal history of urinary calculi; Z98.84 Bariatric surgery status; Z90.49 Acquired absence of other specified parts of digestive tract; Z91.199 Patient's noncompliance with other medical treatment and regimen due to unspecified reason
CPT/HCPCS: 71046; 74176; 80048; 80053; 81003; 81015; 82962; 83036; 83605; 85025; 85027; 87040; 87070; 87071; 87077; 87086; 87154; 87186; 87205